=== PATIENT | male | born 1995 | race Caucasian/White ===

== ENCOUNTER 2023-12-07 17:05 | Emergency (ER) | payer BC ==
[2023-12-07] MEDS: Lidocaine 1% 10 ML MDV INJECT ONE (18:59)
[2023-12-07] MEDS: Bupivacaine 0.25% 10 ML SDV INJECT ONE (18:59)
== END 2023-12-07 20:35 ==
LOC: JD.ED 17:05
DX: S63.284A Dislocation of proximal interphalangeal joint of right ring finger, initial encounter (principal); S62.614A Displaced fracture of proximal phalanx of right ring finger, initial encounter for closed fracture; W23.1XXA Caught, crushed, jammed, or pinched between stationary objects, initial encounter; F17.210 Nicotine dependence, cigarettes, uncomplicated
CPT/HCPCS: 26725; 29125; 73110; 73130; 73140; 99283; J0665; 26770; J3490